=== PATIENT | male | born 1960 | race Caucasian/White ===

== ENCOUNTER 2020-03-04 00:57 | Inpatient (IN) | payer BC ==
[~2020-03-04] VITALS: Ht 182.9 cm; Wt 100.7 kg
--- NOTE | 2020-03-04 01:08 | NUR ---
PT AAOX4. AMBULATORY WITH STEADY GAIT. BIBSELF C/O RLQ PAIN SINCE 2PM. SHAPR AND CONSTANT. PT PLACED IN BED 2 ON MONITOR AND PULSE OX. VSS. NO ACUTE DISTRESS NOTED. MD AT BEDSIDE FOR EVAL. AWAITING ORDERS.
--- NOTE | 2020-03-04 01:24 | NUR ---
LINE ESTABLISHED LH 20G, BLOOD COLLECTED, SENT TO LAB.
[2020-03-04] MEDS ORDERED: ONDANSETRON HCL/PF 4 MG/2 ML VIAL ONE (01:25)
[2020-03-04] MEDS ORDERED: MORPHINE SULFATE INJ 4 MG/ML DISP.SYRIN ONE (01:26)
[2020-03-04] MEDS ORDERED: MORPHINE SULFATE INJ 2 MG/ML DISP.SYRIN IV ONE (01:30)
[2020-03-04] MEDS ORDERED: ONDANSETRON HCL/PF 4 MG/2 ML VIAL IVP ONE (01:30)
[2020-03-04] MEDS ORDERED: IV NS 0.9% 1,000 ML BAG IV ONE (01:30)
[2020-03-04 01:36] LABS: BASOPHILS % (AUTO) 0.3 % (0.0-2.0); EOSINOPHILS % (AUTO) 0.2 % (0.0-6.0); HEMATOCRIT 45 % (39-51); HEMOGLOBIN 15.6 g/dL (13.5-17.5); LYMPHOCYTES # (AUTO) 1.3 /CMM (0.8-4.8); LYMPHOCYTES % (AUTO) 9.2 % (20.0-44.0); MEAN CORPUSCULAR HGB CONC 35 g/dl (31.0-36.0); MEAN CORPUSCULAR VOLUME 97 fL (80-96); MONOCYTES # (AUTO) 0.9 /CMM (0.1-1.30); MONOCYTES % (AUTO) 6.1 % (2.0-12.0); NEUTROPHILS # (AUTO) 12.1 /CMM (1.8-8.9); NEUTROPHILS % (AUTO) 84.2 % (43.0-81.0); PLATELET COUNT (AUTO) 178 /CMM (150-450); RED BLOOD CELL COUNT(AUTO) 4.65 MIL/uL (4.5-6.0); WHITE BLOOD COUNT (AUTO) 14.4 K/uL (4.3-11.0)
--- NOTE | 2020-03-04 01:47 | NUR ---
PT UNABLE TO PROVIDE URINE SAMPLE. PT STATED WILL TRY IN 10 MINS.
[2020-03-04 01:48] LABS: CALCIUM, SERUM 8.8 mg/dL (8.5-10.1); CARBON DIOXIDE 25 mmol/L (21-32); CHLORIDE 103 mmol/L (98-107); GLUCOSE 134 mg/dL (74-106); SODIUM SERUM 135 mmol/L (136-145); UREA NITROGEN, BLOOD 21 mg/dL (7-18)
--- NOTE | 2020-03-04 01:50 | NUR ---
PT BROUGHT TO CT
[2020-03-04 01:53] LABS: ALANINE AMINOTRANSFERASE 18 U/L (12-78); ALKALINE PHOSPHATASE 61 U/L (46-116); ASPARTATE AMINOTRANSFERASE 12 U/L (15-37); BILIRUBIN,DIRECT 0.3 mg/dL (0.0-0.2); BILIRUBIN,TOTAL 0.9 mg/dL (0.2-1.0); LIPASE 62 U/L (73-393); TOTAL PROTEIN, SERUM 7.4 g/dL (6.4-8.2)
[2020-03-04] MEDS ORDERED: PIPERACILLIN /TAZOBACTAM 3.375 G VIAL IV ONE (02:55)
[2020-03-04] MEDS ORDERED: PIPERACILLIN /TAZOBACTAM 3.375 G in IV D5W 50 ML IV ONE (03:00)
[2020-03-04] MEDS ORDERED: MAGNESIUM HYDROXIDE 30 ML UDC PO PRN (03:30)
[2020-03-04] MEDS ORDERED: ACETAMINOPHEN 325 MG TABLET PO PRN (03:30)
[2020-03-04] MEDS ORDERED: MAG HYDROX/AL HYDROX/SIMETH 30 ML UDC PO PRN (03:30)
[2020-03-04] MEDS ORDERED: IV NS 0.9% 1,000 ML IV PRN (03:30)
[2020-03-04] MEDS ORDERED: ONDANSETRON HCL/PF 4 MG/2 ML VIAL IVP PRN (03:30)
[2020-03-04] MEDS ORDERED: Z GUARD REMEDY 2 OZ OINT TP PRN (03:30)
--- NOTE | 2020-03-04 03:46 | NUR ---
PT IN BED COMFORTABLY. VSS.
--- NOTE | 2020-03-04 05:44 | NUR ---
REPORT GIVEN TO JANAE AMES FOR SHABBIR.
[2020-03-04 05:45] VITALS: BP 139/76
--- NOTE | 2020-03-04 05:45 | NUR ---
MS INDUSTRIAL TECHNOLOGY TEACHER NOTES PATIENT ARRIVED VIA WHEELCHAIR FROM ER; ADMITTED FOR ACUTE APPENDECTOMY. A/OX4. STABLE ON RA; DENIES SOB; BREATHING IS EVEN AND UNLABORED. PATIENT C/O PAIN RATED 6/10 ON RLQ ABDOMEN. IV PRESENT ON LEFT HAND, SIZE 20, INTACT & PATENT HEP LOCKED. SKIN INTACT. BELONGINGS LIST REVIEWED AND PLACED IN CHART. MRSA SWAB COMPLETED IN ER. PER CHARGE NURSE, PATIENT SCHEDULED FOR SURGERY AT [address] PIKE FOR APPENDECTOMY; PATIENT NPO SINCE 03/03/20 AT 2000. SAFETY MEASURES IN PLACE AND PATIENT'S NEEDS MET. BED LOCKED, HOB ELEVATED, SIDE RAILS X2, CALL LIGHT WITHIN REACH. WILL CONTINUE TO MONITOR.
[2020-03-04] MEDS ORDERED: PIPERACILLIN /TAZOBACTAM 3.375 G in IV D5W 50 ML IV SCH (06:00)
--- NOTE | 2020-03-04 06:02 | NUR ---
MS RN NOTES OBTAINED CONSENT FOR PROCEDURES; PLACED IN CHART.
[2020-03-04] MEDS: MORPHINE SULFATE INJ 2 MG/ML DISP.SYRIN IV PRN ×3 (06:39→23:43)
[2020-03-04] MEDS ORDERED: ANESTHESIA TRAY IN PYXIS 1 EA TRAY MC ONE (07:05)
[2020-03-04] MEDS ORDERED: BUPIVACAINE MPF 0.5% W/EPI INJ 30 ML VIAL ONE (07:06)
[2020-03-04] MEDS ORDERED: BUPIVACAINE 0.5 % PF 150 MG/30 ML VIAL ONE (07:06)
--- NOTE | 2020-03-04 07:10 | NUR ---
M/S RN OPENING NOTES RECEIVED PATIENT ON BED, AAOX4, RESPONSIVE TO ALL STIMULI. PT WITH SURGERY TODAY AT 0730 FOR LAPAROSCOPIC APPENDECTOMY. RESPIRATION EVEN AND NON LABORED WITH NO ACUTE RESPIRATORY DISTRESS, ON RA. DENIES PAIN AND DISCOMFORT. SKIN WARM TO TOUCH AND DRY. NO EDEMA NOTED. LAST MEDICATION MORPHINE. IV SITE AT LEFT HAND #20 AT NS 75ML/HR, PATENT IN FLUSHING. PT CONSENTED SURGERY WITH FULLY UNDERSTANDING. CALL LIGHT WITHIN REACH, WILL CONT TO MONITOR.
--- NOTE | 2020-03-04 07:18 | NUR ---
M/S RN NOTES PT TRANSPORTED TO SURGERY VIA HOSPITAL BED. PT LEFT IN STABLE CONDITION.
--- NOTE | 2020-03-04 07:26 | NUR ---
MS RN CLOSING NOTES PATIENT TRANSFERRED TO OR FOR PROCEDURE. ENDORSED TO DAY SHIFT RN PLAN OF CARE.
[2020-03-04] MEDS ORDERED: HYDROMORPHONE INJ 2 MG/ML DISP.SYRIN ONE (07:29)
[2020-03-04] MEDS ORDERED: MIDAZOLAM HCL 2 MG/2ML VIAL ONE (07:30)
[2020-03-04] MEDS ORDERED: ROCURONIUM BROMIDE 50 MG/5 ML ONE (07:30)
[2020-03-04 08:00] VITALS: BP 101/57
[2020-03-04] MEDS ORDERED: VALS1TAB4 PO (08:00)
--- NOTE | 2020-03-04 09:08 | NUR ---
M/S NOTES RECEIVED A CALL FROM ANDREEA. PT DOING WELL, NO COMPLICATION POST SURGERY OF LAPAROSCOPIC APPENDECTOMY. OK TO RESUME DIET/MEDS BEFORE SURGERY. WILL BRING THE PATIENT ON THE FLOOR IN 15 MINUTES.
[2020-03-04] MEDS: PANTOPRAZOLE 40 MG VIAL IV SCH (09:33)
[2020-03-04] MEDS: PIPERACILLIN /TAZOBACTAM 3.375 G in IV D5W 100 ML IV SCH ×2 (09:33→16:04)
--- NOTE | 2020-03-04 10:12 | NUR ---
M/S RN NOTES PT RETURN FROM SURGERY, IN STABLE CONDITION AT THIS TIME. PT DENIES PAIN. MENTATION AAOX4, ABLE TO MAKE NEEDS KNOWN. ORDERS NOTED AND CARRIED OUT PER ENDORSEMENT. PT TOLERATED LIQUIDS ON BEDSIDE, NO ASPIRATION NOTED WITH PRECAUTION. VS FOLLOWS: 0926 BP 121/67, HR 62, RR 20, T 97.5, O2 AT 99% RA 0941 BP 117/63, HR 61, RR 18, T 97.5, O2 AT 96% RA 0957 BP 119/63, HR 73, RR 19, T 97.4, O2 AT 95% RA. WILL CONTINUE TO MONITOR CARE
[2020-03-04 12:00] VITALS: BP 113/64
[2020-03-04 16:00] VITALS: BP 127/72
--- NOTE | 2020-03-04 17:57 | NUR ---
M/S RN NOTES PT REPORTED FAILURE TO URINATE WITH URGE TO DO SO, PT S/P LAPAROSCOPIC . OBTAINED NEW ORDER FROM DR. CALLOWAY FOR IN AND OUT CATHETER X1. ORDER READ BACK, NOTE AND CARRIED OUT. PT AWARE AND CONSENTED THE PROCEDURE.
--- NOTE | 2020-03-04 18:40 | NUR ---
M/S RN NOTES FC OUTPUT 300 CC DARK YELLOW. PT FELT RELIEVED. ADVISED TURNING AND AMBULATION TOLERATED. PT UNDERSTOOD
--- NOTE | 2020-03-04 19:23 | NUR ---
M/S RN CLOSING NOTES PT AAOX4, ABLE TO MAKE NEEDS KNOWN. NO PRESENCE OF ACUTE RESPIRATORY DISTRESS, ON RA, DENIES SOB. PT DENIES PAIN. SKIN REMAIN WARM TO TOUCH AND DRY. DRESSING FROM S/P LAP APPENDECTOMY CLEAN AND DRY. ABD SOFT AND NON DISTENDED. ADVISED RE-POSITIONING TO INC PERISTALSIS DUE TO SURGERY. IV SITE PATENT IN FLUSHING AT HAND RUNNING NS AT 75 ML/HR. ALL CONCERNS ATTENDED. NO DC PLANNING. CALL LIGHT WITHIN REACH. ENDORSED CARE TO NEXT SHIFT.
--- NOTE | 2020-03-04 19:30 | NUR ---
MS RN OPENING NOTE RECEIVED PATIENT IN BED. A/OX3. TOLERATING ROOM AIR. RESPIRATIONS ARE EVEN AND UNLABORED. NO S/S SOB NOTED. NO C/O PAIN AT THIS TIME. IN NO APPARENT DISTRESS. IV ACCESS IN LEFT HAND PATENT AND SALINE LOCKED, INFORMED PATIENT TO MAKE ME AWARE IF HE NEEDS TO VOID OR HAVE A BM D/T WE ARE AWAITING FLATULENCE/BM AND PATIENT HAD A STRAIGHT CATH PERFORMED D/T NOT URINATING. BED IS LOW AND LOCKED, HOB ELEVATED IN HIGH FOWLERS, SIDE RAILS UP X2, CALL LIGHT WITHIN REACH. WILL CONTINUE TO MONITOR.
[2020-03-04 20:00] VITALS: BP 134/69
[2020-03-04 20:36] VITALS: BP 134/69
[2020-03-05] MEDS: PIPERACILLIN /TAZOBACTAM 3.375 G in IV D5W 100 ML IV SCH ×2 (00:07→08:29)
--- NOTE | 2020-03-05 04:00 | NUR ---
ms rn note patient ambulated around unit 4 times with steady gait to help bowel regimen. tried to urinate and make a bowel movement, unable to do so. states he feels like he needs to urinate but nothing comes out. did also state he is passing gas. prune juice given, 200ml. will continue to monitor.
--- NOTE | 2020-03-05 04:35 | NUR ---
ms rn note administered prn tylenol 650mg for c/o of headache and per patient request tylenol. will continue to monitor.
--- NOTE | 2020-03-05 06:31 | NUR ---
MS RN CLOSING NOTE PATIENT IS RESTING IN BED. A/OX3. REMAINS TOLERATING ROOM AIR. NO RESP DISTRESS NOTED. MANAGED PAIN WITH MORPHINE. CONTINUES TO HAVE HEADACHE ALTHOUGH TYLENOL WAS GIVEN. NO DISTRESS. IV ACCESS MAINTAINED IN LEFT HAND PATENT AND SALINE LOCKED. PATIENT CONTINUES TO NOT HAVE A BM OR URINE OUTPUT, BUT DOES REPORT FLATULENCE. BED REMAINS LOW AND LOCKED, HOB ELEVATED IN HIGH FOWLERS, SIDE RAILS UP X2, CALL LIGHT WITHIN REACH. WILL ENDORSE TO NEXT SHIFT.
[2020-03-05 07:34] LABS: BASOPHILS % (AUTO) 0.5 % (0.0-2.0); EOSINOPHILS % (AUTO) 0.9 % (0.0-6.0); HEMATOCRIT 42 % (39-51); HEMOGLOBIN 14.3 g/dL (13.5-17.5); LYMPHOCYTES # (AUTO) 1.8 /CMM (0.8-4.8); LYMPHOCYTES % (AUTO) 20.9 % (20.0-44.0); MEAN CORPUSCULAR HGB CONC 34 g/dl (31.0-36.0); MEAN CORPUSCULAR VOLUME 97 fL (80-96); MONOCYTES # (AUTO) 0.7 /CMM (0.1-1.30); MONOCYTES % (AUTO) 7.8 % (2.0-12.0); NEUTROPHILS # (AUTO) 5.9 /CMM (1.8-8.9); NEUTROPHILS % (AUTO) 69.9 % (43.0-81.0); PLATELET COUNT (AUTO) 172 /CMM (150-450); RED BLOOD CELL COUNT(AUTO) 4.31 MIL/uL (4.5-6.0); WHITE BLOOD COUNT (AUTO) 8.5 K/uL (4.3-11.0)
--- NOTE | 2020-03-05 07:58 | NUR ---
MS RN OPENING NOTES BEDSIDE ENDORSEMENT DONE. PATIENT IS IN BED, AWAKE AND VERBALLY RESPONSIVE. A/O X3, ABLE TO MAKE NEEDS KNOWN. BREATHING EVEN AND UNLABORED IN ROOM AIR, NO ACUTE DISTRESS. S/P LAP APPY ON 03/04, ENDORSED BY PREVIOUS SHIFT RN THAT PATIENT HAS NOT VOIDED YET AND NO BM. IV LINE ON LEFT HAND #20 INTACT AND PATENT. SAFETY PRECAUTIONS IN PLACE: BED LOCKED AND ON LOWEST POSITION, SR UP X2, CALL LIGHT W/IN REACH. WILL CONTINUE TO MONITOR.
[2020-03-05 08:00] VITALS: BP 147/75
[2020-03-05 08:01] LABS: ALBUMIN 3.3 g/dL (3.4-5.0); CALCIUM, SERUM 8.6 mg/dL (8.5-10.1); CREATININE 1.2 mg/dL (0.6-1.3); MAGNESIUM 2.2 mg/dL (1.8-2.4); PHOSPHORUS 3.5 mg/dL (2.5-4.9); POTASSIUM 3.8 mmol/L (3.5-5.1); TOTAL PROTEIN, SERUM 6.7 g/dL (6.4-8.2)
[2020-03-05] MEDS: PANTOPRAZOLE 40 MG VIAL IV SCH (08:29)
[2020-03-05] MEDS: MORPHINE SULFATE INJ 2 MG/ML DISP.SYRIN IV PRN (08:34)
[2020-03-05] MEDS ORDERED: ENOXAPARIN SODIUM 40 MG/0.4 ML DISP.SYRIN SQ SCH (09:00)
--- NOTE | 2020-03-05 10:10 | NUR ---
RN NOTES PATIENT STATED THAT HE WAS ABLE TO VOID X2, WAS ABLE TO AMBULATE TO RESTROOM; GAIT IS STEADY.
--- NOTE | 2020-03-05 10:15 | NUR ---
RN NOTES DR. PIKE CALLED AND INQUIRED ABOUT CURRENT PATIENT STATUS; PER DR. PIKE, PATIENT TO SEE HIM IN 1 WEEK TO REMOVE NHUNG AND HAVE PAIN MEDICATION AND ANTIBIOTIC UPON DISCHARGE. MD DID NOT SPECIFY MEDICATION. WILL FOLLOW-UP WITH PMD.
--- NOTE | 2020-03-05 13:48 | NUR ---
RN NOTES PATIENT S/P LAP APPY ON 03/04/2020 W/ DRESSING NOTED ON SURGICAL SITES. SKIN/INCISION ASSESSMENT DONE AND PHOTOS TAKEN AFTER PATIENT VERBALLY CONSENTED. PHOTOS PLACED IN PATIENT'S CHART.
[2020-03-05] MEDS ORDERED: HYDR-4384 PO (13:52)
[2020-03-05] MEDS ORDERED: LEVO500T90 PO (13:52)
[2020-03-05] MEDS ORDERED: IBUP-1955 PO (13:55)
--- NOTE | 2020-03-05 15:08 | NUR ---
RN NOTES FOLLOWED UP W/ MD REGARDING DISCHARGE MEDICATIONS OF PATIENT. PER MD, PATIENT IS OKAY WITH MOTRIN, DISREGARD NORCO.
--- NOTE | 2020-03-05 16:04 | NUR ---
RETAIL STORE CLERK NOTES RECEIVED DISCHARGE ORDER FROM DR. CALLOWAY AND CLEARANCE FROM DR. PIKE. PATIENT IS AWAKE AND VERBALLY RESPONSIVE, NOT IN ACUTE DISTRESS. BREATHING EVEN AND UNLABORED ON ROOM AIR. INFORMED PATIENT ABOUT DISCHARGE, AND PROVIDED DISCHARGE INSTRUCTIONS AND EDUCATION. PATIENT BELONGINGS ACCOUNTED FOR AND FORM SIGNED BY PATIENT. DISCHARGE FORM SIGNED BY PATIENT WELL; INFORMED ABOUT INSTRUCTIONS TO SEE DR. PIKE IN 1 WEEK FOR STAPLE REMOVAL. NAME ARMBAND AND PERIPHERAL IV REMOVED. CONFIRMED W/ PATIENT'S PHARMACY OF CHOICE THE MEDICATIONS ELECTRONICALLY SENT BY MD. RUBIN, PATIENT'S SIGNIFICANT OTHER, PICKED UP PATIENT AT 1600, ACCOMPANIED BY ME TO THE LOBBY. CHARGE NURSE AND MD AWARE OF DISCHARGE.
== END 2020-03-05 16:00 | disposition home or self-care (01) | DRG 343 ==
LOC: ER 00:57 → MED 05:12
PROVIDERS: ADMIT Internal Medicine; ATTEND Internal Medicine
PROC: 0DTJ4ZZ Resection of Appendix, Percutaneous Endoscopic Approach (ICD-10-PCS; principal; 2020-03-04)
DX: K35.30 Acute appendicitis with localized peritonitis, without perforation or gangrene (principal); E86.0 Dehydration; I10 Essential (primary) hypertension; R79.89 Other specified abnormal findings of blood chemistry
CPT/HCPCS: 36415; 71045-TC; 80048-TC; 80053-TC; 80061-TC; 80076-TC; 83690-TC; 83735-TC; 84100-TC; 84484-TC; 85025-TC; 85730-TC; 87081-TC; 93307-TC; C9113; C9803; G0378; J0330; J1170; J1650; J1885; J2250; J2270; J2405; J2543; J2704; J2765; J3490; J7030; J7042; J7060